=== PATIENT | male | born 2000 | race Caucasian/White ===

== ENCOUNTER 2022-12-27 08:45 | Emergency (ER) | payer BC, SELFPAY ==
[2022-12-27] MEDS ORDERED: LORAZEPAM 1 MG TABLET ONE (09:48)
--- NOTE | 2022-12-27 10:08 | RAD REPORT ---
[facility]27/[facility]22 9:30 am CLINICAL HISTORY: CHEST PAIN COMPARISON: No comparisons TECHNIQUE: PA and lateral views of the chest. FINDINGS: The lungs are clear. No pneumothorax or effusion. The cardiomediastinal contours are unrem arkable. IMPRESSION: No acute cardiopulmonary process.
--- NOTE | 2022-12-27 10:37 | ER ---
Nurse's Notes [facility] Name: Clinton Costello Age: 22 yrs Sex: Male : 2000 Arrival Date: 12/27/2022 Time: 08:46 Bed 20 Private MD: Diagnosis: Chest pain, unspecified Presentation: 12/27 08:59 Chief complaint: Patient states: Intermittent sharp left sided chest pain x 2 weeks. jl7 Coronavirus screen: Vaccine status: Patient reports being unvaccinated. At this time, the client does not indicate any symptoms associated with coronavirus-19. Ebola Screen: No symptoms or risks identified at this time. Initial Sepsis Screen: Does the patient meet any 2 criteria? No. Patient's initial sepsis screen is negative. Does the patient have a suspected source of infection? No. Patient's initial sepsis screen is negative. Risk Assessment: Do you want to hurt yourself or someone else? Patient reports no desire to harm self or others. Onset of symptoms is unknown. 08:59 Method Of Arrival: Ambulatory [facility] 08:59 Acuity: CRISTINA 3 jl7 Triage Assessment: 09:00 General: Appears in no apparent distress. uncomfortable, Behavior is calm, cooperative, jl7 appropriate for age. Pain: Complains of pain in anterior aspect of left upper chest Pain currently is 0 out of 10 on a pain scale. at worst was 6 out of 10 on a pain scale. Cardiovascular: Patient's skin is warm and dry. Historical: - Allergies: 09:00 No Known Allergies; jl7 - Home Meds: 09:00 None [Active]; jl7 - PMHx: 09:00 ADD/ADHD; jl7 - PSHx: 09:00 None; jl7 - Immunization history:: Client reports having NOT received the Covid vaccine. - Social history:: Smoking status: Patient/guardian denies using tobacco, Patient uses street drugs, marijuana. Screenin:02 Abuse screen: Denies threats or abuse. Nutritional screening: No deficits noted. ll1 Tuberculosis screening: No symptoms or risk factors identified. 09:11 [facility] ED Fall Risk Assessment (Adult) Score/Fall Risk Level 0 - 2 = Low Risk ll1 Oriented to surroundings, Maintained a safe environment, Educated pt \T\ family on fall prevention, incl call for assistance when getting out of bed, Hourly rounding (assess needs \T\ fall precautionary measures) done. Assessment: 09:10 Reassessment: No changes from previously documented assessment. Patient and/or family ll1 updated on plan of care and expected duration. Pain level reassessed. Patient is alert, oriented x 3, equal unlabored respirations, skin warm/dry/pink. 09:11 Pain: Pain does not radiate. Pain began 2 weeks ago. ll1 10:51 Reassessment: No changes from previously documented assessment. Patient and/or family ll1 updated on plan of care and expected duration. Pain level reassessed. Patient is alert, oriented x 3, equal unlabored respirations, skin warm/dry/pink. Vital Signs: 08:59 BP 144 / 90; Pulse 89; Resp 17; Temp 98.2; Pulse Ox 100% ; Weight 86.18 kg; Height 6 jl7 ft. 1 in. (185.42 cm); Pain 0/10; 10:50 BP 126 / 92; Pulse 76; Resp 14; Pulse Ox 100% ; Pain 0/10; ll1 08:59 Body Mass Index 25.07 (86.18 kg, 185.42 cm) jl7 ED Course: 08:46 Patient arrived in ED. am2 08:50 Sharonda Chao FNP-C [facility]. snw 08:50 Jono Lozano MD is Attending Physician. snw 09:00 Triage completed. jl7 09:00 Arm band placed on right wrist. jl7 09:02 Patient placed in an exam room, on a stretcher. ll1 09:10 Chino Hudson RN is Primary Nurse. ll1 09:10 No provider procedures requiring assistance completed. Patient maintains SpO2 ll1 saturation greater than 95% on room air. 09:11 Patient has correct armband on for positive identification. Bed in low position. Call 1 light in reach. Client placed on continuous cardiac and pulse oximetry monitoring. NIBP monitoring applied. media monitor on. 10:51 Patient did not have IV access during this emergency room visit. ll1 Administered Medications: 09:46 Drug: Ativan (LORazepam) 1 mg Route: PO; ll1 10:51 Follow up: Response: No adverse reaction; Anxiety decreased; RASS: Alert and Calm (0) ll1 Medication: 09:10 VIS not applicable for this client. ll1 Outcome: 10:36 Discharge ordered by MD. hanna 10:51 Patient left the ED. ll1 10:51 Discharged to home ambulatory. ll1 10:51 Condition: stable 10:51 Discharge instructions given to patient, family, Instructed on discharge instructions, follow up and referral plans. medication usage, Demonstrated understanding of instructions, follow-up care, medications, Prescriptions given X 1. Signatures: Sharonda Chao, DAMIEN-C GREEN WARE CASTER-Csnw Ac Cisneros RN RN jl7 Svetlana Mccoy Lynsay, RN RN ll1
--- NOTE | 2022-12-27 10:38 | EDPHYS ---
Physician Documentation [facility] Name: Clinton Costello Age: 22 yrs Sex: Male : 2000 Arrival Date: 12/27/2022 Time: 08:46 Bed 20 Private MD: ED Physician Jono Lozano HPI: 12/27 10:51 This 22 yrs old Male presents to ER via Ambulatory with complaints of Chest Pain - snw onset yesterday. 10:52 The patient or guardian reports chest pain that is located primarily in the substernal snw area. The pain does not radiate. Associated signs and symptoms: The patient has no apparent associated signs or symptoms. The chest pain is described as sharp. Duration: The patient or guardian reports multiple episodes, that are intermittent, that wax and wane. Severity of pain: At its worst the pain was moderate in the emergency department the pain is unchanged. The patient has experienced similar episodes in the past, pt tearful, apprehensive . The patient has not recently seen a physician. Pt states he is just scared about his health because he hasn't always made the best choices. Pt is tearful/fearful. Historical: - Allergies: 09:00 No Known Allergies; jl7 - Home Meds: 09:00 None [Active]; jl7 - PMHx: 09:00 ADD/ADHD; jl7 - PSHx: 09:00 None; jl7 - Immunization history:: Client reports having NOT received the Covid vaccine. - Social history:: Smoking status: Patient/guardian denies using tobacco, Patient uses street drugs, marijuana. ROS: 10:49 Constitutional: Negative for fever, chills, and weight loss, Eyes: Negative for injury, snw pain, redness, and discharge, ENT: Negative for injury, pain, and discharge, Neck: Negative for injury, pain, and swelling. 10:49 Cardiovascular: Positive for chest pain, of the left clavicle, anterior aspect of left upper chest, mid-sternal area and left breast, randomly over the past 2-3 weeks, sharp, comes and goes, lasts about 20-30 minutes. 10:51 Respiratory: Negative for shortness of breath, cough, wheezing, and pleuritic chest snw pain, Abdomen/GI: Negative for abdominal pain, nausea, vomiting, diarrhea, and constipation, Back: Negative for injury and pain, : Negative for injury, bleeding, discharge, and swelling, MS/Extremity: Negative for injury and deformity, Skin: Negative for injury, rash, and discoloration, Neuro: Negative for headache, weakness, numbness, tingling, and seizure, Psych: Negative for depression, anxiety, suicide ideation, homicidal ideation, and hallucinations. Vital Signs: 08:59 BP 144 / 90; Pulse 89; Resp 17; Temp 98.2; Pulse Ox 100% ; Weight 86.18 kg; Height 6 jl7 ft. 1 in. (185.42 cm); Pain 0/10; 10:50 BP 126 / 92; Pulse 76; Resp 14; Pulse Ox 100% ; Pain 0/10; ll1 08:59 Body Mass Index 25.07 (86.18 kg, 185.42 cm) jl7 MDM: 09:01 Patient medically screened. snw 12/27 09:06 Order name: EKG; Complete Time: 09:06 snw 12/27 09:06 Order name: EKG - Nurse/Tech; Complete Time: 09:10 snw 12/27 09:06 Order name: Chest Pa And Lat (2 Views) XRAY snw 12/27 10:09 Order name: RAD; Complete Time: 10:17 EDMS EC:11 Rate is 76 beats/min. Rhythm is regular. IN interval is normal. QRS interval is normal. snw T waves are Inverted in lead aVR. Clinical impression: NSR w/ Non-specific ST/T Changes. Administered Medications: 09:46 Drug: Ativan (LORazepam) 1 mg Route: PO; ll1 10:51 Follow up: Response: No adverse reaction; Anxiety decreased; RASS: Alert and Calm (0) ll1 Disposition Summary: 12/27/22 10:36 Discharge Ordered Location: Home snw Condition: Stable snw Diagnosis - Chest pain, unspecified snw Followup: snw - With: Emergency Department - When: As needed - Reason: Worsening of condition Followup: snw - With: Private Physician - When: 5 - 6 days - Reason: Recheck today's complaints, Continuance of care, Re-evaluation by your physician Discharge Instructions: - Discharge Summary Sheet snw - Nonspecific Chest Pain, Adult snw - Stress, Adult snw - Managing Stress, Adult snw - Mindfulness-Based Stress Reduction snw Forms: - Medication Reconciliation Form snw - Thank You Letter snw - Antibiotic Education snw - Prescription Opioid Use snw Prescriptions: - venlafaxine 37.5 mg Oral capsule,extended release 24hr - take 1 capsule by ORAL route once daily; 60 capsule; Refills: 0, Product snw Selection Permitted Signatures: Dispatcher [employer] EDSharonda Pollack FNP-C DENTAL ASSOCIATE-Csnw Ac Cisneros RN RN jl7 Chino Hudson RN RN ll1
[2022-12-27 10:57] VITALS: BP 144/90; TEMP 98.2; O2SAT 100
--- NOTE | 2022-12-29 16:45 | EKG ---
Test Date: 2022-12-27 Test Time: 09:07:00 Membership Coordinator: JULIANA MEASUREMENT RESULTS: Intervals: Rate: 76 OK: 122 QRSD: 90 QT: 362 QTc: 407 Gilbert: P: 68 OK: 122 QRS: 90 T: 36 INTERPRETIVE STATEMENTS: Normal sinus rhythm with sinus arrhythmia Rightward axis Borderline ECG Compared to ECG 11/18/2016 22:11:28 Right-axis deviation now present Electronically Signed On 12-29-22 16:39:10 BOW STRING MAKER by Jake Cabrera
== END 2022-12-27 10:51 | disposition home or self-care (01) ==
LOC: ER 08:45
DX: R07.89 Other chest pain (principal)
CPT/HCPCS: 71046; 93005; 99284

== ENCOUNTER 2023-03-29 11:34 | Emergency (ER) | payer BC, OTHER ==
[2023-03-29] MEDS ORDERED: KETOROLAC 30 MG/ML INJ ONE ×2 (12:46→14:47)
[2023-03-29] MEDS ORDERED: NA CHLORIDE 0.9% 1,000 ML ONE (12:46)
[2023-03-29] MEDS ORDERED: ONDANSETRON 4 MG/2 ML VIAL ONE (12:46)
[2023-03-29] MEDS ORDERED: FAMOTIDINE 20 MG/2 ML VIAL IV ONE (12:46)
[2023-03-29 13:09] LABS: Absolute Lymphocytes (CBC) 1.8 K/uL (0.7-4.9); Hematocrit 48.7 % (39.6-49.0); Lymphocytes % 24.8 % (15.3-44.8); MCV 89.9 fL (80-100); MPV 7.9 fL (7.6-11.3); RBC Red Blood Cell Count 5.42 M/uL (4.33-5.43)
--- NOTE | 2023-03-29 14:13 | RAD REPORT ---
EXAM DESCRIPTION: CT - Abdomen Pelvis W Contrast - 03/29/2023 1:33 pm CLINICAL HISTORY: Nausea / vomiting;Pain COMPARISON: No comparisons TECHNIQUE: Thin cut axial CT imaging of the abdomen and pelvis was performed following intravenous a dministration of 70 mL Isovue 300. Multiplanar reformats were generated and reviewed. All CT scans are performed using dose optimization technique as appropriate and may include automated exposure control or mA/KV adjustment according to patient size. FINDINGS: No suspicious findings in the lung bases. The liver, spleen, and pancreas show no suspicious findings. Gallbladder and biliary tree are also wi thout suspicious finding. Symmetric renal function is seen with no hydronephrosis or suspicious renal mass. No dilated bowel loops. Mild wall prominence along most of the transverse colon and proximal descendi ng colon, nonspecific, could relate to nondistention, or infectious or inflammatory colitis. No free air, free fluid or inflammatory stranding. No hernia, mass or bulky lymphadenopathy. The urinary blad ángel is without significant finding. No suspicious bony findings. IMPRESSION: Apparent wall thickening along most of the transverse and proximal descending colon, cou ld be related to infectious or inflammatory colitis. Nondistention limits evaluation however. No other acute intra-abdominal process.
--- NOTE | 2023-03-29 14:27 | ER ---
Nurse's Notes [facility] Name: Clinton Costello Age: 23 yrs Sex: Male : 2000 Arrival Date: 03/29/2023 Time: 11:34 Bed 16 Private MD: Diagnosis: Other specified noninfective gastroenteritis and colitis Presentation: 03/29 12:02 Chief complaint: Patient states: "food poisoned" dx two days ago, with TIFFANIE leg and h/a vg1 and N/V. Coronavirus screen: Vaccine status: Patient reports being unvaccinated. Client denies travel out of the [place] in the last 14 days. Ebola Screen: Patient negative for fever greater than or equal to 101.5 degrees Fahrenheit, and additional compatible Ebola Virus Disease symptoms Patient denies exposure to infectious person. Patient denies travel to an Ebola-affected area in the 21 days before illness onset. Initial Sepsis Screen: Does the patient meet any 2 criteria? No. Patient's initial sepsis screen is negative. Does the patient have a suspected source of infection? No. Patient's initial sepsis screen is negative. Risk Assessment: Do you want to hurt yourself or someone else? Patient reports no desire to harm self or others. Onset of symptoms was March 27, 2023. 12:02 Method Of Arrival: Ambulatory vg1 12:02 Acuity: CRISTINA 3 vg1 Triage Assessment: 12:06 General: Appears uncomfortable, Behavior is cooperative. Pain: Complains of pain in vg1 right leg and left leg. GI: Abdomen is flat, Reports nausea, vomiting. Historical: - Allergies: 12:06 No Known Allergies; vg1 - Home Meds: 12:06 None [Active]; vg1 - PMHx: 12:06 ADD/ADHD; vg1 - PSHx: 12:06 None; vg1 - Immunization history:: Client reports having NOT received the Covid vaccine. - Social history:: Smoking status: Patient denies any tobacco usage or history of. Screenin:03 [facility] ED Fall Risk Assessment (Adult) History of falling in the last 3 months, kr3 including since admission No falls in past 3 months (0 pts) Confusion or Disorientation No (0 pts) Intoxicated or Sedated No (0 pts) Impaired Gait No (0 pts) Mobility Assist Device Used No (0 pt) Altered Elimination No (0 pt) Score/Fall Risk Level 0 - 2 = Low Risk Oriented to surroundings, Maintained a safe environment, Educated pt \\T\\ family on fall prevention, incl call for assistance when getting out of bed, Provided non-skid footwear. Abuse screen: Denies threats or abuse. Nutritional screening: No deficits noted. Tuberculosis screening: No symptoms or risk factors identified. Assessment: 15:04 GI:. kr3 Vital Signs: 12:02 BP 136 / 86; Pulse 87; Resp 16; Temp 98.6(O); Pulse Ox 100% on R/A; Weight 87.54 kg; vg1 Height 6 ft. 1 in. ; 12:02 Body Mass Index 25.46 (87.54 kg, 185.42 cm) vg1 ED Course: 11:37 Patient arrived in ED. mr 11:41 Cathryn Arevalo FNP is [facility]. 7 11:41 Rodri Valera MD is Attending Physician. jh7 12:06 Triage completed. vg1 12:06 Arm band placed on. vg1 12:15 Bety Draper, CORINA is Primary Nurse. kr3 12:15 Bed in low position. Call light in reach. Side rails up X 1. kr3 12:47 Missed attempt(s): 22 gauge in right forearm. Bleeding controlled, band aid applied, jl7 catheter tip intact. 13:00 Inserted saline lock: 20 gauge in right upper arm, using aseptic technique. ,using nj1 aseptic technique. Ultrasound guided. Catheter tip well visualized within vasculature during placement. Blood collected. 13:34 CT Abd/Pelvis - IV Contrast Only In Process Unspecified. EDMS 15:03 No provider procedures requiring assistance completed. IV discontinued, intact, kr3 bleeding controlled, No redness/swelling at site. Pressure dressing applied. Administered Medications: 13:00 Drug: NS 0.9% IV 1000 ml Route: IV; Rate: 1 bolus; Site: right upper arm; nj1 15:09 Follow up: Response: No adverse reaction; IV Status: Completed infusion; IV Intake: kr3 1000ml 13:01 Drug: Ondansetron IVP 4 mg Route: IVP; Site: right upper arm; nj1 14:11 Follow up: Response: No adverse reaction kr3 13:03 Drug: TORadol - Ketorolac IVP 15 mg Route: IVP; Site: right upper arm; nj1 14:11 Follow up: Response: No adverse reaction kr3 13:05 Drug: Famotidine IVP 20 mg Route: IVP; Site: right upper arm; nj1 14:12 Follow up: Response: No adverse reaction kr3 14:45 Drug: Ketorolac IVP 15 mg Route: IVP; Site: right upper arm; kr3 15:09 Follow up: Response: No adverse reaction kr3 Medication: 15:05 VIS not applicable for this client. kr3 Intake: 15:09 IV: 1000ml; Total: 1000ml. kr3 Outcome: 14:26 Discharge ordered by . betito 15:04 Discharged to home ambulatory. kr3 15:04 Condition: stable 15:04 Discharge instructions given to patient, Instructed on discharge instructions, follow up and referral plans. medication usage, Demonstrated understanding of instructions, follow-up care, medications, Prescriptions given X 4. 15:09 Patient left the ED. kr3 Signatures: Dispatcher [employer] [facility] Dayanna Melisas Jahala RN RN jl7 Pauline Bhakta, RN RN vg1 Cathryn Arevalo, INSPECTOR [employer]GL[employer] FRAMES INSPECTOR [employer]GL[employer] FRAMES jh7 Bety Draper RN RN kr3 Michelle Muro RN RN nj1
--- NOTE | 2023-03-29 14:27 | EDPHYS ---
Physician Documentation [facility] Name: Clinton Costello Age: 23 yrs Sex: Male : 2000 Arrival Date: 03/29/2023 Time: 11:34 Bed 16 Private MD: ED Physician Rodri Valera HPI: 03/29 12:05 This 23 yrs old Male presents to ER via Ambulatory with complaints of Abdominal Pain, jh7 Vomiting, Leg Pain. 12:05 The patient presents with abdominal pain in the lower abdomen. Onset: The jh7 symptoms/episode began/occurred 3 day(s) ago. Associated signs and symptoms: Pertinent positives: nausea and vomiting, nausea, vomiting, Pertinent negatives: chest pain, fever, vomiting blood. 23-year-old male presents with abdominal pain, vomiting, bilateral leg cramping, and headache for the past 3 days. States that he was diagnosed by urgent care with food poisoning after testing negative for COVID and flu. Denies any past medical problems.. Historical: - Allergies: 12:06 No Known Allergies; vg1 - Home Meds: 12:06 None [Active]; vg1 - PMHx: 12:06 ADD/ADHD; vg1 - PSHx: 12:06 None; vg1 - Immunization history:: Client reports having NOT received the Covid vaccine. - Social history:: Smoking status: Patient denies any tobacco usage or history of. ROS: 12:05 Eyes: Negative for injury, pain, redness, and discharge, ENT: Negative for injury, jh7 pain, and discharge, Neck: Negative for injury, pain, and swelling, Cardiovascular: Negative for chest pain, palpitations, and edema, Respiratory: Negative for shortness of breath, cough, wheezing, and pleuritic chest pain, Back: Negative for injury and pain, MS/Extremity: Negative for injury and deformity, Skin: Negative for injury, rash, and discoloration, Neuro: Negative for headache, weakness, numbness, tingling, and seizure. 12:05 Constitutional: Positive for malaise, Negative for fever. 12:05 Abdomen/GI: Positive for abdominal pain, nausea and vomiting, Negative for diarrhea, constipation, black/tarry stool. 12:05 All other systems are negative. Exam: 12:05 Head/Face: Normocephalic, atraumatic. Eyes: Pupils equal round and reactive to light, 7 extra-ocular motions intact. Lids and lashes normal. Conjunctiva and sclera are non-icteric and not injected. Cornea within normal limits. Periorbital areas with no swelling, redness, or edema. Neck: Trachea midline, no thyromegaly or masses palpated, and no cervical lymphadenopathy. Supple, full range of motion without nuchal rigidity, or vertebral point tenderness. No Meningismus. Cardiovascular: Regular rate and rhythm with a normal S1 and S2. No gallops, murmurs, or rubs. Normal PMI, no JVD. No pulse deficits. Respiratory: Lungs have equal breath sounds bilaterally, clear to auscultation and percussion. No rales, rhonchi or wheezes noted. No increased work of breathing, no retractions or nasal flaring. Back: No spinal tenderness. No costovertebral tenderness. Full range of motion. Skin: Warm, dry with normal turgor. Normal color with no rashes, no lesions, and no evidence of cellulitis. MS/ Extremity: Pulses equal, no cyanosis. Neurovascular intact. Full, normal range of motion. Neuro: Awake and alert, GCS 15, oriented to person, place, time, and situation. Motor strength 5/5 in all extremities. Sensory grossly intact. Normal gait. 12:05 Constitutional: The patient appears alert, awake, uncomfortable. 12:05 Abdomen/GI: Inspection: abdomen appears normal, Bowel sounds: normal, Palpation: soft, mild abdominal tenderness, in the right lower quadrant and left lower quadrant. Vital Signs: 12:02 BP 136 / 86; Pulse 87; Resp 16; Temp 98.6(O); Pulse Ox 100% on R/A; Weight 87.54 kg; vg1 Height 6 ft. 1 in. ; 12:02 Body Mass Index 25.46 (87.54 kg, 185.42 cm) vg1 MDM: 11:41 Patient medically screened. [facility] 15:00 Differential diagnosis: appendicitis, cholecystitis, gastritis, pancreatitis, jh7 Gastroenteritis, colitis. Data reviewed: vital signs, nurses notes, lab test result(s), radiologic studies, CT scan. I considered the following discharge prescriptions or medication management in the emergency department Medications were administered in the Emergency Department. See MAR. Counseling: I had a detailed discussion with the patient and/or guardian regarding: the historical points, exam findings, and any diagnostic results supporting the discharge/admit diagnosis, to return to the emergency department if symptoms worsen or persist or if there are any questions or concerns that arise at home. Response to treatment: the patient's symptoms have markedly improved after treatment. 03/29 12:05 Order name: CBC with Diff; Complete Time: 13:44 [facility] 03/29 12:05 Order name: CMP [facility] 03/29 12:05 Order name: Lipase [facility] 03/29 12:05 Order name: CT Abd/Pelvis - IV Contrast Only; Complete Time: 14:15 [facility] 03/29 12:05 Order name: IV Saline Lock; Complete Time: 13:11 [facility] 03/29 12:05 Order name: Labs collected and sent; Complete Time: 13:11 [facility] 03/29 13:14 Order name: Labs - recollect needed: recollect chemistry; Complete Time: 14:11 eb Administered Medications: 13:00 Drug: NS 0.9% IV 1000 ml Route: IV; Rate: 1 bolus; Site: right upper arm; nj1 15:09 Follow up: Response: No adverse reaction; IV Status: Completed infusion; IV Intake: kr3 1000ml 13:01 Drug: Ondansetron IVP 4 mg Route: IVP; Site: right upper arm; nj1 14:11 Follow up: Response: No adverse reaction kr3 13:03 Drug: TORadol - Ketorolac IVP 15 mg Route: IVP; Site: right upper arm; nj1 14:11 Follow up: Response: No adverse reaction kr3 13:05 Drug: Famotidine IVP 20 mg Route: IVP; Site: right upper arm; nj1 14:12 Follow up: Response: No adverse reaction kr3 14:45 Drug: Ketorolac IVP 15 mg Route: IVP; Site: right upper arm; kr3 15:09 Follow up: Response: No adverse reaction kr3 Disposition Summary: 03/29/23 14:26 Discharge Ordered Location: Home [facility] Problem: new [facility] Symptoms: have improved [facility] Condition: Stable [facility] Diagnosis - Other specified noninfective gastroenteritis and colitis [facility] Followup: [facility] - With: Private Physician - When: 2 - 3 days - Reason: Recheck today's complaints Discharge Instructions: - Discharge Summary Sheet 7 - Viral Gastroenteritis, Adult [facility] - Vomiting, Adult jh7 - Colitis jh7 Forms: - Medication Reconciliation Form 7 - Thank You Letter jh7 - Antibiotic Education jh7 - Work release form kc6 Prescriptions: - ondansetron 4 mg Oral Tablet,disintegrating - take 1 tablet by ORAL route every 4-6 hours As needed; 20 tablet; Refills: 0, [facility] Product Selection Permitted - Cipro 500 mg Oral Tablet - take 1 tablet by ORAL route every 12 hours for 7 days; 14 tablet; Refills: 0, [facility] Product Selection Permitted - Flagyl 500 mg Oral Tablet - take 1 tablet by ORAL route every 12 hours for 7 days; 14 tablet; Refills: 0, [facility] Product Selection Permitted - Levsin 0.125 mg Oral Tablet - take 1 tablet by ORAL route every 8 hours; 30 tablet; Refills: 0, Product [facility] Selection Permitted Signatures: Dispatcher [employer] Eulalia Shaffer Victoria RN RN vg1 Cathryn Arevalo, HYDRANT SETTER [facility]7 Bety Draper RN RN kr3 Michelle Muro RN RN nj1
[2023-03-29 15:13] LABS: Albumin 3.8 g/dL (3.4-5.0); Bilirubin Total 0.5 mg/dL (0.2-1.0); Potassium 3.7 mEq/L (3.5-5.1); Protein, Total 6.7 g/dL (6.4-8.2)
[2023-03-29 15:15] VITALS: BP 136/86; TEMP 98.6; O2SAT 100
== END 2023-03-29 15:09 | disposition home or self-care (01) ==
LOC: ER 11:34
DX: K52.89 Other specified noninfective gastroenteritis and colitis (principal)
CPT/HCPCS: 96361; 85025; 36415; 83690; 80053; 74177; 96375; 96374; 99284; Q9967; J2405; J7030

== ENCOUNTER 2023-06-05 11:32 | Emergency (ER) | payer BC, OTHER ==
[2023-06-05] MEDS ORDERED: KETOROLAC 30 MG/ML INJ ONE (12:12)
--- NOTE | 2023-06-05 12:12 | RAD REPORT ---
EXAM DESCRIPTION: CTAbdomen Pelvis Wo Contrast - 06/05/2023 12:00 pm CLINICAL HISTORY: right flank, ruq pain COMPARISON: Abdomen Pelvis W Contrast dated 03/29/2023 TECHNIQUE: CT of the abdomen and pelvis was performed. All CT scans are performed using dose optimization technique as appropriate and may include automated exposure control or mA/KV adjustment according to patient size. FINDINGS: Lower chest: Mild circumferential thickened distal esophagus which could reflect a mild es ophagitis. Liver: No acute abnormality or suspicious lesions. Biliary: No biliary ductal dilatation. Stomach: No significant focal abnormality. Duodenum: No significant focal abnormality. Pancreas: No significant abnormality. Spleen: No significant abnormality. Adrenal: No suspicious lesions. Kidney/ureter: No hydronephrosis. No renal calculi. Retroperitoneum: No retroperitoneal adenopathy. Vascular: No aneurysm. Bowel: Nonspecific fluid within the small bowel.. Normal appendix. Peritoneum: No ascites or free air. Bladder: Grossly unremarkable. Reproductive: No adnexal masses. Bones: No acute fracture. Slight disc height loss at L5-S1. Other: n/a IMPRESSION: No acute intra-abdominal or pelvic finding. Normal appendix. No urinary tract calculi.
[2023-06-05 12:22] LABS: Hematocrit 47.4 % (39.6-49.0); MCV 88.8 fL (80-100); MPV 7.8 fL (7.6-11.3); Platelets 312 thou/uL (152-406); RBC Red Blood Cell Count 5.34 M/uL (4.33-5.43)
[2023-06-05 12:23] LABS: Absolute Lymphocytes (CBC) 2.1 K/uL (0.7-4.9); Lymphocytes % 26.6 % (15.3-44.8)
[2023-06-05 12:39] LABS: Albumin 4.4 g/dL (3.4-5.0); Bilirubin Total 0.5 mg/dL (0.2-1.0); Potassium 4.1 mEq/L (3.5-5.1)
[2023-06-05 13:03] LABS: Specific Gravity 1.024 (1.005-1.030); Urine Bacteria None Seen /HPF (<20); Urine Bilirubin NEGATIVE (Negative); Urine Blood Negative (Negative); Urine Clarity Clear (Clear); Urine Color Light-Yellow (Yellow); Urine Glucose NEGATIVE (Negative); Urine Mucus Slight /HPF (None Seen); Urine Protein NEGATIVE (Negative); Urine RBC <5 /HPF (None Seen); Urine Urobilinogen Normal (Normal)
--- NOTE | 2023-06-05 13:57 | EDPHYS ---
Physician Documentation [facility] Name: Clinton Costello Age: 23 yrs Sex: Male : 2000 Arrival Date: 06/05/2023 Time: 11:32 Bed 5 Private MD: ED Physician Mike Ramos HPI: 06/05 12:26 This 23 yrs old Male presents to ER via Ambulatory with complaints of Back Pain, cp3 Abdominal Pain. 12:26 Patient is a 23-year-old male with no significant past medical history who presents to [facility] the ED secondary to 1 week of right flank pain with radiation to the right upper quadrant. The patient denies fever, chills, nausea vomiting but endorses nausea. The patient denies pain in relation to food. The patient denies hematuria. Patient eating and drinking normally only changes that he recently changed to a healthier diet.. Patient endorses the pain is 3 out of 10 at this time and was improved with Motrin at home a few days ago. Historical: - Allergies: 11:51 No Known Allergies; hb - Home Meds: 11:51 None [Active]; hb - PMHx: 11:51 ADD/ADHD; hb - PSHx: 11:51 None; hb - Immunization history:: Adult Immunizations up to date. - Social history:: Smoking status: Patient reports the use of cigarette tobacco products, Patient uses Marijuana. - Family history:: not pertinent. ROS: 12:26 Constitutional: Negative for fever, chills, and weight loss, Eyes: Negative for injury, cp3 pain, redness, and discharge, ENT: Negative for injury, pain, and discharge, Neck: Negative for injury, pain, and swelling, Cardiovascular: Negative for chest pain, palpitations, and edema, Respiratory: Negative for shortness of breath, cough, wheezing, and pleuritic chest pain, : Negative for injury, bleeding, discharge, and swelling, MS/Extremity: Negative for injury and deformity, Skin: Negative for injury, rash, and discoloration, Neuro: Negative for headache, weakness, numbness, tingling, and seizure, Psych: Negative for depression, anxiety, suicide ideation, homicidal ideation, and hallucinations, Allergy/Immunology: Negative for hives, rash, and allergies, Endocrine: Negative for neck swelling, polydipsia, polyuria, polyphagia, and marked weight changes, Hematologic/Lymphatic: Negative for swollen nodes, abnormal bleeding, and unusual bruising. 12:26 Back: Negative for injury and pain. 12:26 Abdomen/GI: Positive for abdominal pain, nausea, Right flank pain. 12:26 Abdomen/GI: 12:26 Abdomen/GI: Negative for diarrhea, constipation, black/tarry stool. Exam: 12:26 Constitutional: This is a well developed, well nourished patient who is awake, alert, cp3 and in no acute distress. Head/Face: Normocephalic, atraumatic. Eyes: Pupils equal round and reactive to light, extra-ocular motions intact. Lids and lashes normal. Conjunctiva and sclera are non-icteric and not injected. Cornea within normal limits. Periorbital areas with no swelling, redness, or edema. ENT: Nares patent. No nasal discharge, no septal abnormalities noted. Tympanic membranes are normal and external auditory canals are clear. Oropharynx with no redness, swelling, or masses, exudates, or evidence of obstruction, uvula midline. Mucous membranes moist. Neck: Trachea midline, no thyromegaly or masses palpated, and no cervical lymphadenopathy. Supple, full range of motion without nuchal rigidity, or vertebral point tenderness. No Meningismus. Chest/axilla: Normal chest wall appearance and motion. Nontender with no deformity. No lesions are appreciated. Cardiovascular: Regular rate and rhythm with a normal S1 and S2. No gallops, murmurs, or rubs. Normal PMI, no JVD. No pulse deficits. Respiratory: Lungs have equal breath sounds bilaterally, clear to auscultation and percussion. No rales, rhonchi or wheezes noted. No increased work of breathing, no retractions or nasal flaring. Skin: Warm, dry with normal turgor. Normal color with no rashes, no lesions, and no evidence of cellulitis. Neuro: Awake and alert, GCS 15, oriented to person, place, time, and situation. Cranial nerves II-XII grossly intact. Motor strength 5/5 in all extremities. Sensory grossly intact. Cerebellar exam normal. Normal gait. Psych: Awake, alert, with orientation to person, place and time. Behavior, mood, and affect are within normal limits. 12:26 Abdomen/GI: Inspection: Patient with mild right upper quadrant tenderness without rebound, right CVA tenderness. No peritoneal signs bowel sounds normal. Vital Signs: 11:50 BP 138 / 95; Pulse 77; Resp 16; Temp 98.4(O); Pulse Ox 100% ; Weight 88.45 kg; Height 6 hb ft. 1 in. ; Pain 4/10; 12:53 BP 121 / 78; Pulse 71; Resp 16 S; Pulse Ox 100% on R/A; aa5 11:50 Body Mass Index 25.73 (88.45 kg, 185.42 cm) hb 11:50 Pain Scale: Adult hb MDM: 11:53 Patient medically screened. cp3 12:26 Differential diagnosis: The differential diagnosis includes renal stone, biliary colic, cp3 gallstones, gastritis, musculoskeletal pain, hepatic steatosis. 13:48 Differential diagnosis: The differential diagnosis includes fatty liver, biliary colic, cp3 kidney stone, intra-abdominal abnormality. Data reviewed: vital signs, nurses notes, lab test result(s), CBC, electrolytes, hepatic panel, radiologic studies, CT scan. Consideration of Admission/Observation Admission considered patient states symptoms have resolved and with like to follow-up outpatient. I considered the following discharge prescriptions or medication management in the emergency department Medications were administered in the Emergency Department. See MAR. Test considered but Not performed: Ultrasound Patient with normal LFTs and CT without evidence of acute biliary disease will defer ultrasound at this time. ED course: Results discussed with patient and significant other at bedside stable for outpatient follow-up with GI. 06/05 11:52 Order name: CBC with Diff; Complete Time: 13:47 cp3 06/05 11:52 Order name: Comprehensive Metabolic Panel; Complete Time: 13:47 cp3 06/05 11:52 Order name: Lipase; Complete Time: 13:47 cp3 06/05 11:52 Order name: Urinalysis W/Microscopic; Complete Time: 13:47 cp3 06/05 11:52 Order name: CT Abd/Pelvis - Without Contrast; Complete Time: 13:47 cp3 06/05 11:52 Order name: Saline Lock; Complete Time: 12:17 cp3 Administered Medications: 12:16 Drug: Ketorolac IVP 30 mg Route: IVP; Site: left antecubital; aa5 12:53 Follow up: Response: No adverse reaction aa5 Disposition Summary: 06/05/23 13:57 Discharge Ordered Location: Home cp3 Condition: Stable cp3 Diagnosis - Other abdominal pain - right flank pain, ruq pain cp3 Discharge Instructions: - Discharge Summary Sheet cp3 - Abdominal Pain, Adult cp3 Forms: - Medication Reconciliation Form cp3 - Thank You Letter cp3 - Antibiotic Education cp3 - Prescription Opioid Use cp3 - Patient Portal Instructions cp3 - Work release form Prescriptions: - Pepcid 20 mg Oral Tablet - take 1 tablet by ORAL route every 12 hours for 5 days; 10 tablet; Refills: 0, cp3 Product Selection Permitted - Zofran 4 mg Oral Tablet - take 1 tablet by ORAL route every 12 hours As needed; 20 tablet; Refills: 0, cp3 Product Selection Permitted Signatures: Dispatcher [employer] Mike Allison MD MD cp3 Joan Borjas RN RN aa5 Mary Cedeño, RN RN
--- NOTE | 2023-06-05 13:57 | ER ---
Nurse's Notes [facility] Name: Clinton Costello Age: 23 yrs Sex: Male : 2000 Arrival Date: 06/05/2023 Time: 11:32 Bed 5 Private MD: Diagnosis: Other abdominal pain-right flank pain, ruq pain Presentation: 06/05 11:50 Chief complaint: Right flank pain that radiates to RUQ X 4 days. Coronavirus screen: At this time, the client does not indicate any symptoms associated with coronavirus-19. Ebola Screen: No symptoms or risks identified at this time. Initial Sepsis Screen: Does the patient meet any 2 criteria? No. Patient's initial sepsis screen is negative. Does the patient have a suspected source of infection? No. Patient's initial sepsis screen is negative. Risk Assessment: Do you want to hurt yourself or someone else? Patient reports no desire to harm self or others. Onset of symptoms was June 01, 2023. 11:50 Method Of Arrival: Ambulatory hb 11:50 Acuity: CRISTINA 3 hb Historical: - Allergies: 11:51 No Known Allergies; hb - Home Meds: 11:51 None [Active]; hb - PMHx: 11:51 ADD/ADHD; hb - PSHx: 11:51 None; hb - Immunization history:: Adult Immunizations up to date. - Social history:: Smoking status: Patient reports the use of cigarette tobacco products, Patient uses Marijuana. - Family history:: not pertinent. Screenin:10 [facility] ED Fall Risk Assessment (Adult) History of falling in the last 3 months, aa5 including since admission No falls in past 3 months (0 pts) Confusion or Disorientation No (0 pts) Intoxicated or Sedated No (0 pts) Impaired Gait No (0 pts) Mobility Assist Device Used No (0 pt) Altered Elimination No (0 pt) Score/Fall Risk Level 0 - 2 = Low Risk Oriented to surroundings, Maintained a safe environment, Educated pt \T\ family on fall prevention, incl call for assistance when getting out of bed. Abuse screen: Denies threats or abuse. Nutritional screening: No deficits noted. Tuberculosis screening: No symptoms or risk factors identified. Assessment: 12:08 General: Appears comfortable, Behavior is calm, cooperative. Pain: Complains of pain in aa5 right flank Pain radiates to right upper quadrant Pain currently is 4 out of 10 on a pain scale. Quality of pain is described as sharp, Pain began 3 days ago Is intermittent. Neuro: Level of Consciousness is awake, alert, obeys commands, Oriented to person, place, time, situation. Cardiovascular: Heart tones S1 S2 present Rhythm is regular. Respiratory: Airway is patent Respiratory effort is even, unlabored, Respiratory pattern is regular, symmetrical. GI: Abdomen is flat, non-distended, Bowel sounds present X 4 quads. Abd is soft and non tender X 4 quads. Patient currently denies diarrhea, nausea, vomiting. : No signs and/or symptoms were reported regarding the genitourinary system. EENT: No signs and/or symptoms were reported regarding the EENT system. Derm: Skin is pink, warm \T\ dry. Musculoskeletal: Range of motion: intact in all extremities. 12:51 Reassessment: Urine sent to lab. . aa5 12:53 Reassessment: Patient is alert, oriented x 3, equal unlabored respirations, skin aa5 warm/dry/pink. 14:35 Reassessment: Patient appears in no apparent distress at this time. Patient and/or iw family updated on plan of care and expected duration. Pain level reassessed. Patient is alert, oriented x 3, equal unlabored respirations, skin warm/dry/pink. Vital Signs: 11:50 BP 138 / 95; Pulse 77; Resp 16; Temp 98.4(O); Pulse Ox 100% ; Weight 88.45 kg; Height 6 hb ft. 1 in. ; Pain 4/10; 12:53 BP 121 / 78; Pulse 71; Resp 16 S; Pulse Ox 100% on R/A; aa5 11:50 Body Mass Index 25.73 (88.45 kg, 185.42 cm) hb 11:50 Pain Scale: Adult hb ED Course: 11:35 Patient arrived in ED. rg4 11:39 Lit Brenner MD is Attending Physician. rt 11:45 Attending Physician role handed off by Lit Brenner MD cp3 11:45 Mike Ramos MD is Attending Physician. cp3 11:51 Triage completed. hb 11:52 Arm band placed on. hb 11:58 Joan Borjas, RN is Primary Nurse. aa5 12:02 CT Abd/Pelvis - Without Contrast In Process Unspecified. EDMS 12:08 Patient has correct armband on for positive identification. Bed in low position. Call aa5 light in reach. Side rails up X 1. Adult w/ patient. 12:10 Initial lab(s) drawn, by me, sent to lab. Inserted saline lock: 20 gauge in left aa5 antecubital area, using aseptic technique. Blood collected. 12:47 No provider procedures requiring assistance completed. aa5 14:30 Provided Education on: prescriptions . iw 14:34 IV discontinued, intact, bleeding controlled, No redness/swelling at site. Pressure iw dressing applied. Administered Medications: 12:16 Drug: Ketorolac IVP 30 mg Route: IVP; Site: left antecubital; aa5 12:53 Follow up: Response: No adverse reaction aa5 Medication: 12:30 VIS not applicable for this client. iw Outcome: 13:57 Discharge ordered by . cp3 14:34 Discharged to home ambulatory. iw 14:34 Condition: good 14:34 Discharge instructions given to patient, Instructed on discharge instructions, follow up and referral plans. Demonstrated understanding of instructions, follow-up care, medications, Prescriptions given X 2. 14:35 Patient left the ED. iw Signatures: Dispatcher [employer] EDFL Mike Ramos MD MD cp3 Magaly La, CORINA ARRIAGA iw Joan Borjas RN RN aa5 Mary Cedeño RN RN hb Garcia, Rubi rg4 Lit Brenner MD MD rt
[2023-06-05 14:39] VITALS: TEMP 98.4; O2SAT 100
[2023-06-05 14:40] VITALS: BP 121/78
== END 2023-06-05 14:35 | disposition home or self-care (01) ==
LOC: ER 11:32
DX: R10.11 Right upper quadrant pain (principal); Z72.0 Tobacco use
CPT/HCPCS: 36415; 74176; 80053; 81001; 83690; 85025; 96374; 99284

== ENCOUNTER 2024-07-01 11:24 | Emergency (ER) | payer BC ==
[2024-07-01] MEDS ORDERED: KETOROLAC 30 MG/ML INJ ONE (12:06)
[2024-07-01] MEDS ORDERED: METOCLOPRAMIDE 10 MG/2mL INJ ONE (12:06)
[2024-07-01] MEDS ORDERED: DIPHENHYDRAMINE 50 MG/ML VIAL ONE (12:06)
[2024-07-01] MEDS ORDERED: NA CHLORIDE 0.9% 50 ML ONE (12:07)
[2024-07-01] MEDS ORDERED: NA CHLORIDE 0.9% 1,000 ML ONE (12:07)
--- NOTE | 2024-07-01 12:12 | RAD REPORT ---
EXAM DESCRIPTION: CT - Head Brain Wo Cont - 07/01/2024 12:01 pm CLINICAL HISTORY: HEADACHE COMPARISON: No comparisons TECHNIQUE: All CT scans are performed using dose optimization technique as appropriate and may inclu de automated exposure control or mA/KV adjustment according to patient size. FINDINGS: No intracranial hemorrhage, hydrocephalus or extra-axial fluid collection.No areas of brai n edema or evidence of midline shift. Landen cisterna magna. The paranasal sinuses and mastoids are clear. The calvarium is intact. IMPRESSION: No acute intracranial abnormality.
[2024-07-01 13:26] LABS: SARS-CoV-2 Antigen CONTROL BLUE LINE VIS/BG OK; SARS-CoV-2 Antigen Rapid Res Negative (Negative)
[2024-07-01 13:46] LABS: Absolute Lymphocytes (CBC) 0.9 K/uL (0.7-4.9); Absolute Monocytes 0.6 K/uL (0.1-1.3); Absolute Neutrophil 9.6 K/uL (1.8-8.0); Basophils % 0.2 % (0-1.3); Eosinophils % 0.4 % (0-4.4); Hematocrit 48.4 % (39.6-49.0); Hemoglobin 16.1 g/dL (13.6-17.9); Lymphocytes % 7.9 % (15.3-44.8); MCH 30.5 pg (27.0-35.0); MCHC 33.2 g/dL (32.0-36.0); MCV 91.7 fL (80-100); MPV 8.2 fL (7.6-11.3); Monocytes % 5.6 % (3.3-12.3); Neutrophils % 85.9 % (41.7-73.7); Platelets 241 thou/uL (152-406); RBC Red Blood Cell Count 5.28 M/uL (4.33-5.43); Red Cell Distribution Width 12.5 % (12.1-15.2)
[2024-07-01 13:59] LABS: Anion Gap 10.2 mEq/L (5.0-15.0); Potassium 4.2 mEq/L (3.5-5.1)
--- NOTE | 2024-07-01 14:29 | ER ---
Nurse's Notes [facility] Name: Clinton Costello Age: 24 yrs Sex: Male : 2000 Arrival Date: 07/01/2024 Time: 11:24 Bed 20 Private MD: Diagnosis: Headache;Myalgia;Elevated blood-pressure reading, without diagnosis of hypertension Presentation: 07/01 11:36 Chief complaint: Patient states: ABD pain, N/V, headache, stiff neck X 2 days. Went to [facility] urgent care - sent to ER>. Coronavirus screen: At this time, the client does not indicate any symptoms associated with coronavirus-19. Ebola Screen: No symptoms or risks identified at this time. Initial Sepsis Screen: Does the patient meet any 2 criteria? No. Patient's initial sepsis screen is negative. Does the patient have a suspected source of infection? No. Patient's initial sepsis screen is negative. Risk Assessment: Do you want to hurt yourself or someone else? Patient reports no desire to harm self or others. Onset of symptoms was July 01, 2024. 11:36 Method Of Arrival: Ambulatory ld1 11:36 Acuity: CRISTINA 3 ld1 Triage Assessment: 11:36 Headache History: Denies prior headaches. General: Appears in no apparent distress. ld1 uncomfortable, Behavior is calm, cooperative, appropriate for age. Pain: Complains of pain in face, abdomen, right leg, left leg and neck Pain does not radiate. Pain currently is 10 out of 10 on a pain scale. at worst was 10 out of 10 on a pain scale. Quality of pain is described as aching, pressure, throbbing, Pain began 2-3 days ago. Is continuous. EENT: No signs and/or symptoms were reported regarding the EENT system. Neuro: Level of Consciousness is awake, alert, obeys commands, Oriented to person, place, time, situation, Appropriate for age. Cardiovascular: Capillary refill < 3 seconds Patient's skin is warm and dry. Respiratory: Airway is patent Respiratory effort is even, unlabored. GI: Abdomen is round non-distended, Reports lower abdominal pain, upper abdominal pain, nausea, vomiting. : No signs and/or symptoms were reported regarding the genitourinary system. Historical: - Allergies: 11:35 No Known Allergies; ld1 - Home Meds: 11:35 None [Active]; ld1 - PMHx: 11:35 ADD/ADHD; ld1 - PSHx: 11:35 None; ld1 - Immunization history:: Adult Immunizations up to date. - Infectious Disease History:: Denies. - Social history:: Smoking status: Patient denies any tobacco usage or history of. Patient uses alcohol, occasionally. Screenin:28 [facility] ED Fall Risk Assessment (Adult) History of falling in the last 3 months, jl7 including since admission No falls in past 3 months (0 pts) Confusion or Disorientation No (0 pts) Intoxicated or Sedated No (0 pts) Impaired Gait No (0 pts) Mobility Assist Device Used No (0 pt) Altered Elimination No (0 pt) Score/Fall Risk Level 0 - 2 = Low Risk Oriented to surroundings, Maintained a safe environment. Abuse screen: Denies threats or abuse. Denies injuries from another. Nutritional screening: No deficits noted. Tuberculosis screening: No symptoms or risk factors identified. Assessment: 12:28 General: Appears in no apparent distress. uncomfortable, Behavior is calm, cooperative, jl7 appropriate for age. Pain: Complains of pain in head and vanda legs Pain currently is 5 out of 10 on a pain scale. Neuro: Level of Consciousness is awake, alert, obeys commands, Oriented to person, place, time, situation. Cardiovascular: Patient's skin is warm and dry. Respiratory: Airway is patent Respiratory effort is even, unlabored, Respiratory pattern is regular, symmetrical. Derm: Skin is pink, warm \T\ dry. Vital Signs: 11:36 BP 161 / 84; Pulse 78; Resp 18; Temp 98.5(O); Pulse Ox 99% on R/A; Weight 88.45 kg; ld1 Height 5 ft. 9 in. ; Pain 5/10; 15:15 BP 163 / 68; Pulse 50; Resp 15; Pulse Ox 98% ; jl7 11:36 Body Mass Index 28.80 (88.45 kg, 175.26 cm) ld1 11:36 Pain Scale: Adult ld1 ED Course: 11:27 Patient arrived in ED. mr 11:31 Pa Fisher DO is Attending Physician. ms3 11:36 Arm band placed on right wrist. ld1 11:37 Triage completed. ld1 12:03 CT Head Brain wo Cont In Process Unspecified. EDMS 12:04 Ac Cisneros, RN is Primary Nurse. jl7 12:15 Missed attempt(s): 22 gauge in left antecubital area. Bleeding controlled, band aid jl7 applied, catheter tip intact. 12:25 Missed attempt(s): 22 gauge in right antecubital area. Bleeding controlled, band aid jl7 applied, catheter tip intact. 12:28 Patient has correct armband on for positive identification. Provided Education on: use jl7 of call dias. Warm blanket given. 12:47 Accessed peripheral vein via ultrasound, utilizing dynamic ultrasound technique Blood cm10 collected. using Clean \T\ dry. Dressing intact. No blood return. Flushes easily. 20G right forearm. Missed attempt(s): 22 gauge in right hand. Bleeding controlled, band aid applied, catheter tip intact. 14:28 Eitan Lozano DO is Referral Physician. ms3 15:32 No provider procedures requiring assistance completed. IV discontinued, intact, jl7 bleeding controlled, No redness/swelling at site. Pressure dressing applied. Administered Medications: 12:40 Drug: NS 0.9% IV 1000 ml IV at 1 bolus Per protocol; 1000 mL bolus Route: IV; Rate: 1 jl7 bolus; Site: right forearm; 14:00 Follow up: Response: No adverse reaction; IV Status: Completed infusion; IV Intake: jl7 1000ml 12:42 Drug: diphenhydrAMINE IVP 25 mg IVP once Route: IVP; Site: right forearm; jl7 13:00 Follow up: Response: No adverse reaction jl7 12:43 Drug: Ketorolac IVP 10 mg 10 mg IVP once Route: IVP; Site: right forearm; jl7 13:15 Follow up: Response: No adverse reaction; Pain is decreased jl7 12:48 Drug: metoCLOPramide IVP 10 mg IVP once; over 1 to 2 minutes Route: IVP; Site: right jl7 forearm; 13:30 Follow up: Response: No adverse reaction; No change in condition jl7 14:58 Drug: Ondansetron IVP 4 mg IVP once; over 2 minutes Route: IVP; Site: right forearm; jl7 14:59 Follow up: Response: Medication administered at discharge. jl7 Medication: 12:28 VIS not applicable for this client. jl7 Intake: 14:00 IV: 1000ml; Total: 1000ml. jl7 Outcome: 14:29 Discharge ordered by . ms3 15:00 Discharged to home ambulatory, jl7 15:00 Condition: stable 15:00 Discharge instructions given to patient, Instructed on discharge instructions, follow up and referral plans. Demonstrated understanding of instructions, follow-up care, medications, Prescriptions given X 2, 15:34 Patient left the ED. jl7 Signatures: Dispatcher [employer] EDMS Dayanna Melissa, Reg Reg mr CisnerosAc, RN RN jl7 Pa Fisher, DO ms3 Emily Fisher, RN RN ld1 Loraine Goodrich, RN RN cm10
--- NOTE | 2024-07-01 14:29 | EDPHYS ---
Physician Documentation [facility] Name: Clinton Costello Age: 24 yrs Sex: Male : 2000 Arrival Date: 07/01/2024 Time: 11:24 Bed 20 Private MD: ED Physician Pa Fisher HPI: 07/01 11:55 This 24 yrs old Male presents to ER via Ambulatory with complaints of Headache. ms3 11:55 24-year-old male with past medical history of ADD/ADHD presents to the emergency ms3 department for headache abdominal pain, leg pain, neck pain. Patient states he was seen urgent care this morning where flu and COVID were tested and found to be negative. Patient denies sick contacts.. Historical: - Allergies: 11:35 No Known Allergies; ld1 - Home Meds: 11:35 None [Active]; ld1 - PMHx: 11:35 ADD/ADHD; ld1 - PSHx: 11:35 None; ld1 - Immunization history:: Adult Immunizations up to date. - Infectious Disease History:: Denies. - Social history:: Smoking status: Patient denies any tobacco usage or history of. Patient uses alcohol, occasionally. ROS: 11:55 Constitutional: Negative for fever, and chills. ms3 11:55 Respiratory: Negative for shortness of breath, cough, wheezing, and pleuritic chest pain, Abdomen/GI: Negative for abdominal pain, nausea, vomiting, diarrhea, and constipation, 11:55 Neck: Positive for pain with movement, 11:55 MS/extremity: Positive for Bilateral leg pain, Exam: 11:55 Constitutional: This is a well developed, well nourished patient who is awake, alert, ms3 and in no acute distress. Head/Face: Normocephalic, atraumatic. Neck: Trachea midline, no cervical lymphadenopathy. Supple, full range of motion without nuchal rigidity, or vertebral point tenderness. No Meningismus. Chest/axilla: Normal chest wall appearance and motion. Nontender with no deformity. Cardiovascular: Regular rate and rhythm with a normal S1 and S2. No gallops, murmurs, or rubs. Normal PMI, no JVD. No pulse deficits. Respiratory: Lungs have equal breath sounds bilaterally, clear to auscultation and percussion. No rales, rhonchi or wheezes noted. No increased work of breathing, no retractions or nasal flaring. Abdomen/GI: Soft, non-tender, with normal bowel sounds. No distension or tympany. No guarding or rebound. No evidence of tenderness throughout. Skin: Warm, dry with normal turgor. Normal color with no rashes, no lesions, and no evidence of cellulitis. MS/ Extremity: Pulses equal, no cyanosis. Neurovascular intact. Full, normal range of motion. Vital Signs: 11:36 BP 161 / 84; Pulse 78; Resp 18; Temp 98.5(O); Pulse Ox 99% on R/A; Weight 88.45 kg; ld1 Height 5 ft. 9 in. ; Pain 5/10; 15:15 BP 163 / 68; Pulse 50; Resp 15; Pulse Ox 98% ; jl7 11:36 Body Mass Index 28.80 (88.45 kg, 175.26 cm) ld1 11:36 Pain Scale: Adult ld1 MDM: 11:49 Patient medically screened. ms3 14:38 Differential diagnosis: hypertensive headache, intracerebral hemorrhage, meningitis, ms3 subarachnoid bleed. Data reviewed: vital signs, nurses notes, lab test result(s), radiologic studies, and as a result, I will discharge patient. I considered the following discharge prescriptions or medication management in the emergency department Medications were administered in the Emergency Department. See MAR. Independent interpretation of the following test(s) in the Emergency Department CT Scan: My interpretation is CT head without contrast images reviewed by me do not reveal intracranial hemorrhage. Counseling: I had a detailed discussion with the patient and/or guardian regarding the historical points, exam findings, and any diagnostic results supporting the discharge/admit diagnosis, lab results, radiology results, the need for outpatient follow up, to return to the emergency department if symptoms worsen or persist or if there are any questions or concerns that arise at home. Refusal of service: The patient/guardian displays adequate decision making capability and despite a detailed discussion of alternatives, benefits, risks, and consequences refuses: Lumbar Puncture procedure. Special discussion: I discussed with the patient/guardian in detail that at this point there is no indication for admission to the hospital. It is understood, however, that if the symptoms persist or worsen the patient needs to return immediately for re-evaluation. ED course: Discussed lumbar puncture with patient and he declines. Discussed with patient lumbar puncture would allow us to identify possible subarachnoid hemorrhage or meningitis. Patient states he will return to the emergency department if his symptoms worsen. Patient aware of , disability, missed diagnosis if LP not performed. Patient is alert and oriented x 4, no apparent distress, symptoms improved, speaking full sentences. Patient to follow-up with Dr. Lozano in 2 to 3 days. All questions were answered. Return precautions discussed include worsening symptoms, or any other concerns. 07/01 11:48 Order name: CBC with Diff; Complete Time: 14: ms3 07/01 11:48 Order name: BMP; Complete Time: 14: ms3 07/01 11:48 Order name: Flu; Complete Time: 14: ms3 07/01 11:48 Order name: SARS RAPID; Complete Time: 14: ms3 07/01 11:48 Order name: CT Head Brain wo Cont; Complete Time: 12:40 ms3 07/01 11:48 Order name: IV Start; Complete Time: 12:47 ms3 Administered Medications: 12:40 Drug: NS 0.9% IV 1000 ml IV at 1 bolus Per protocol; 1000 mL bolus Route: IV; Rate: 1 jl7 bolus; Site: right forearm; 14:00 Follow up: Response: No adverse reaction; IV Status: Completed infusion; IV Intake: jl7 1000ml 12:42 Drug: diphenhydrAMINE IVP 25 mg IVP once Route: IVP; Site: right forearm; jl7 13:00 Follow up: Response: No adverse reaction jl7 12:43 Drug: Ketorolac IVP 10 mg 10 mg IVP once Route: IVP; Site: right forearm; jl7 13:15 Follow up: Response: No adverse reaction; Pain is decreased jl7 12:48 Drug: metoCLOPramide IVP 10 mg IVP once; over 1 to 2 minutes Route: IVP; Site: right jl7 forearm; 13:30 Follow up: Response: No adverse reaction; No change in condition jl7 14:58 Drug: Ondansetron IVP 4 mg IVP once; over 2 minutes Route: IVP; Site: right forearm; jl7 14:59 Follow up: Response: Medication administered at discharge. jl7 Disposition Summary: 07/01/24 14:29 Discharge Ordered Notes: Location: Home ms3 Condition: Stable ms3 Diagnosis - Headache ms3 - Myalgia ms3 - Elevated blood-pressure reading, without diagnosis of hypertension ms3 Followup: ms3 - With: Eitan Lozano DO - When: 2 - 3 days - Reason: Recheck today's complaints Discharge Instructions: - Discharge Summary Sheet jl7 - General Headache Without Cause ms3 - Viral Illness, Adult ms3 Forms: - Family Work Release jl7 - Medication Reconciliation Form ms3 - Antibiotic Education ms3 - Prescription Opioid Use ms3 - Patient Portal Instructions ms3 - Leadership Thank You Letter ms3 Prescriptions: - ondansetron 4 mg Oral Tablet,disintegrating - take 1 tablet ORAL route 3 times per day; 15 tablet; Refills: 0, Product ms3 Selection Permitted - Ibuprofen 600 mg Oral Tablet - take 1 tablet ORAL route every 6 hours As needed take with food; 30 tablet; ms3 Refills: 0, Product Selection Permitted Signatures: Dispatcher [employer] EDAc Ramos RN RN jl7 Pa Fisher DO DO ms3 Emily Fisher RN RN ld1 Corrections: (The following items were deleted from the chart) 11:49 11:49 CBC+H.LAB.BRZ ordered. EDMS EDMS 11:49 11:49 BASIC METABOLIC PANEL+C.LAB.BRZ ordered. EDMS EDMS 11:49 11:49 Head Brain Wo Cont+CT.RAD.BRZ ordered. EDMS EDMS 11:49 11:49 Influenza Screen (A \T\ B)+BA.LAB.BRZ ordered. EDMS EDMS 11:49 11:49 SARS-COV-2 Antigen Rapid+I.LAB.BRZ ordered. EDMS EDMS
[2024-07-01] MEDS ORDERED: ONDANSETRON 4 MG/2 ML VIAL ONE (14:53)
[2024-07-01 15:43] VITALS: TEMP 98.5
[2024-07-01 15:45] VITALS: BP 163/68; O2SAT 98
== END 2024-07-01 15:34 | disposition home or self-care (01) ==
LOC: ER 11:24
DX: R51.9 Headache, unspecified (principal); M79.10 Myalgia, unspecified site; R03.0 Elevated blood-pressure reading, without diagnosis of hypertension; Z11.52 Encounter for screening for COVID-19
CPT/HCPCS: 96361; 85025; 80048; 36415; 87804 ×2; 70450; 96375; 96374; 99284; 87811; J2765; J1200; J2405; J7030